=== PATIENT | male | born 1990 | race Caucasian/White ===

== ENCOUNTER 2023-01-26 01:25 | Emergency (ER) | payer MEDICAID ==
[~2023-01-26] VITALS: Ht 170.2 cm; Wt 63.5 kg
[2023-01-26 01:30] VITALS: BP 122/84; PULSE 121; RESP 16; TEMP 97.4
[2023-01-26] MEDS ORDERED: ACETAMINOPHEN EXTRA STRENGTH 500 MG TAB PO ONE (01:40)
[2023-01-26 02:20] VITALS: BP 122/84; PULSE 121; RESP 16; TEMP 97.4
== END 2023-01-26 02:20 ==
LOC: MED 01:25
DX: S83.8X1A Sprain of other specified parts of right knee, initial encounter (principal); X50.1XXA Overexertion from prolonged static or awkward postures, initial encounter; Y93.89 Activity, other specified; Y92.89 Other specified places as the place of occurrence of the external cause; Y99.8 Other external cause status
CPT/HCPCS: 73562; 99283

== ENCOUNTER 2023-05-23 02:59 | Emergency (ER) | payer MEDICAID ==
[~2023-05-23] VITALS: Ht 170.2 cm; Wt 61.2 kg
[2023-05-23 03:09] VITALS: BP 131/76; PULSE 109; RESP 20; TEMP 98.2; O2SAT 99
[2023-05-23] MEDS ORDERED: LORazepam 1 MG TAB PO ONE (03:20)
[2023-05-23 05:00] VITALS: BP 131/76; PULSE 109; RESP 20; TEMP 98.2; O2SAT 99
== END 2023-05-23 05:00 | disposition home or self-care (01) ==
LOC: MED 02:59
DX: R07.9 Chest pain, unspecified (principal); F14.10 Cocaine abuse, uncomplicated; Z79.899 Other long term (current) drug therapy
CPT/HCPCS: 93005; 99283